=== PATIENT | male | born 1960 | race Caucasian/White ===

== ENCOUNTER → 2021-05-27 | Outpatient (CLI) | payer MEDICARE, OTHER ==
[2015-04-14 11:10] VITALS: BP 170/87
[~2021-05-27] MED LIST: AMLO-187 PO; AMOX1TAB61 PO; ASPI-482 PO; CALC0.5C8 PO; CARV25TA2 PO; CRESTOR40 MG PO; DOCU-109 PO; HYDR-2759 PO; INSU100I13 SQ; INSU100I17 SQ; LISI20TA18 PO; LOSA-73 PO; METO5TAB4 PO; Oxycodone Hcl/Acetaminophen PO; POLY17PO29 PO; SIMV20TA18 PO
== END ==
LOC: LAB 13:50
PROVIDERS: ATTEND Surgery Vascular Surgery
DX: Z01.812 Encounter for preprocedural laboratory examination (principal); Z20.822 Contact with and (suspected) exposure to COVID-19
CPT/HCPCS: U0003; U0005

== ENCOUNTER 2021-05-29 10:53 | Day surgery (SDC) | payer MEDICARE, OTHER ==
[~2021-05-29] VITALS: Ht 188 cm; Wt 109.0 kg
[~2021-05-29 10:53] MED LIST changes: +HEPARIN SODIUM 5,000 UNIT in IV NORMAL SALINE 500ML BAG 500 ML IRR ONE; -HYDR-2759 PO; +HYDROmorphone 2 MG/ML VIAL IVP PRN; +IV RINGERS,LACTATED 1000ML 1,000 ML IV SCH; +LIDOCAINE 1% Multi-Dose 20 ML VIAL. ONE; +MORPHINE SULFATE 2 MG/ML INJ. IVP PRN; +PAPAVERINE 60 MG/2 ML VIAL. ONE; +PROCHLORPERAZINE 10 MG/2 ML VIAL. IVP PRN; +SURGICEL FIBRILLAR 1X2 EACH. ONE; +fentaNYL PF VIAL 100 MCG/2 ML VIAL IVP PRN
[2021-05-29 11:34] VITALS: BP 134/62
[2021-05-29] MEDS ORDERED: INSULIN LISPRO 100 UNIT/ML 3ML VIAL for OP,RR ONLY. SQ PRN (12:00)
[2021-05-29] MEDS ORDERED: IV NORMAL SALINE 1000ML BAG 1,000 ML IV SCH (12:00)
[2021-05-29] MEDS ORDERED: ONDANSETRON PF 4 MG/2 ML VIAL. ONE (12:03)
[2021-05-29] MEDS ORDERED: LIDOCAINE 2% PF 5 ML VIAL. ONE (12:03)
[2021-05-29] MEDS ORDERED: fentaNYL PF VIAL 100 MCG/2 ML VIAL ONE ×2 (12:03→16:06)
[2021-05-29] MEDS ORDERED: DEXAMETHASONE SOD PHOS 4 MG/ML VIAL ONE (12:03)
[2021-05-29] MEDS ORDERED: PROPOFOL 10 MG/ML (20ML) VIAL. IV ONE ×2 (12:03→14:53)
[2021-05-29 12:05] LABS: BASO % 0 % (0-3); EOS # 0.4 x10^3/uL (0.0-0.7); EOS % 5 % (0-3); HEMATOCRIT 27.5 % (39.0-53.0); HEMOGLOBIN 9.6 g/dL (13.0-17.5); LYMPH # 0.5 x10^3/uL (1.0-4.8); LYMPH % 7 % (24-48); MEAN CORPUSCULAR HEMOGLOBIN 30 pg (25-35); MEAN CORPUSCULAR HGB CONC 35 g/dL (31-37); MEAN CORPUSCULAR VOLUME 86 fL (79-100); MONO # 0.8 x10^3/uL (0.0-1.1); MONO % 11 % (0-9); NEUT # 5.4 x10^3/uL (1.8-7.7); NEUT % 76 % (31-73); PLATELET COUNT 136 x10^3/uL (140-400); RED CELL DISTRIBUTION WIDTH 13.3 % (11.5-14.5); WHITE BLOOD COUNT 7.1 x10^3/uL (4.0-11.0)
[2021-05-29 12:10] LABS: CALCIUM 8.2 mg/dL (8.5-10.1); CREATININE 4.4 mg/dL (0.7-1.3); GFR 13.7; POTASSIUM 4.1 mmol/L (3.5-5.1)
[2021-05-29] MEDS ORDERED: INSULIN LISPRO 100 UNIT/ML 3ML VIAL for OP,RR ONLY. SQ ONE (12:15)
[2021-05-29] MEDS ORDERED: HYDR-2759 PO (12:56)
--- NOTE | 2021-05-29 13:00 | DISCH ---
DISCHARGE INSTRUCTIONS Condition on Discharge Condition on Discharge: Stable Activity After Discharge Activity Instructions for Disc: Activity as tolerated Other activity instructions: elevate operative arm for swelling, start hand/ball exercises when tolerate Lifting Instructions after Dis: No heavy lifting Exercise Instruction after Dis: Progress as tolerated Driving Instructions after Dis: Other, see below Diet after Discharge Diet after Discharge: Renal Dialysis, Diabetic No Calorie Level Diet Texture: Regular Wound Incision Care Wound/Incision Care: Change dressing (may remove dressing in 2 days), May get incision wet Contacting the DRJuan Diego after DC Call your doctor for: If your condition worsens Follow-Up Follow up with: Dr. Goodwin in 2-3 weeks call for appointment [phone] Treatment/Equipment after DC Adaptive Equipment Issued: None MICHELLE DOSHI APRN May 29, 2021 13:00
[2021-05-29] MEDS ORDERED: PHENYLEPHRINE in 0.9% NACL PF 1 MG/10 ML SYRINGE. IV ONE (13:46)
[2021-05-29] MEDS ORDERED: PROTAMINE 50 MG/5 ML VIAL. IV ONE (14:38)
[2021-05-29] MEDS ORDERED: SEVOFLURANE 61 TO 120 MINUTES. IH ONE (14:46)
--- NOTE | 2021-05-29 15:00 | PDOC ---
BRIEF OPERATIVE NOTE Date: May 29, 2021 Pre-Op Diagnosis ESRD on dialysis, previously on peritoneal dialysis now failing Peripheral arterial disease Post-Op Diagnosis same Procedure Performed Right brachiocephalic fistula Surgeon Cassius Goodwin Environment Coordinator Jenny Chahal APRN Anesthesia Type: General Blood Loss 20 cc Findings Circumferentially calcium brachial artery Complications none Operative Note Brachial artery circumerentially calcified with medial calcium. Cephalic vein of adequate size for fistual creation below antecubital fossa CASSIUS GOODWIN MD May 29, 2021 15:00
--- NOTE | 2021-05-29 15:35 | OP ---
DATE OF SURGERY: 05/29/2021 SURGEON: Cassius Goodwin MD MECHANIC FIELD SERVICE: Jenny Chahal APRN PROCEDURE PERFORMED: Right brachiocephalic fistula creation. PREOPERATIVE DIAGNOSES: 1. End-stage renal disease on peritoneal dialysis with peritoneal dialysis, now failing. 2. Peripheral arterial disease. POSTOPERATIVE DIAGNOSES: 1. End-stage renal disease on peritoneal dialysis with peritoneal dialysis, now failing. 2. Peripheral arterial disease. OPERATIVE FINDINGS: The brachial artery was significantly calcified circumferentially, but a large artery and patent. The cephalic vein was adequate for fistula creation without disease. ANESTHESIA: General, LMA. ESTIMATED BLOOD LOSS: 20 mL. COMPLICATIONS: None. SPECIMENS: None. DESCRIPTION OF PROCEDURE: The patient was brought to the operative theater and placed under general anesthesia with an LMA. Surgical time-out was then performed and the right arm was prepped and draped in a standard sterile fashion. 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 Additionally, there was concern for peripheral arterial disease on his preoperative examination as he did not have palpable pulses at the wrist despite having triphasic waveforms. Therefore, the decision was chosen to proceed with a brachiocephalic creation. Prior to prepping and draping, ultrasound was used to identify the cephalic vein and the brachial artery. The brachial artery bifurcation was quite low. Therefore, an incision was able to be made below the antecubital fossa for exposure of the brachial artery and cephalic vein. Preoperative antibiotics were administered and surgical time-out was performed. I then began with an incision that was transversely below the antecubital fossa and exposed the cephalic vein, exposing adequate length to allow for anastomosis. I then identified the brachial artery with the assistance of Doppler and encircled this with vessel loops, both proximally and distally. The artery was significantly calcified with medial wall calcification circumferentially. Heparin was given and the brachial artery was then clamped distally then proximally, which was somewhat difficult due to the degree of calcium. An arteriotomy was then made after dividing the cephalic vein to allow for transposition. The cephalic vein venotomy was then extended to match the length of the arteriotomy along the anterior surface of the brachial artery. End-to-side anastomosis from the cephalic vein to the brachial artery was then performed with running 6-0 Prolene. Two additional repair sutures were required for hemostasis at completion of the anastomosis. At the completion of the procedure, there was a faint thrill in the cephalic vein, palpable in the peripheral portion of the vein and there was triphasic signal in the radial artery distally. The wound was hemostatic. Protamine was given to reverse the heparin effect, 8000 units of heparin was given prior to clamping the artery. The wound was then closed with 3-0 Vicryl and 4-0 Monocryl, 3-0 Vicryl for deep dermals and 4-0 Monocryl for running subcuticular fashion. Dermabond was then applied with sterile dressing. The patient was then awakened from anesthesia and transferred to recovery room in stable condition. KEYLA DR: Uzma TID: [id number] MTDAron
[2021-05-29] MEDS: fentaNYL PF VIAL 100 MCG/2 ML VIAL IVP PRN ×2 (16:16→16:27)
[2021-05-29] MEDS ORDERED: HYDROcodone/APAP 5/325MG 1 TAB TABLET ONE (16:28)
[2021-05-29] MEDS ORDERED: HYDROcodone/APAP 5/325MG 1 TAB TABLET PO ONE (16:30)
[2021-05-29] MEDS ORDERED: oxyCODONE/APAP 5/325 1 TAB TABLET PO ONE (16:30)
[2021-05-29 16:45] VITALS: BP 136/59
== END 2021-05-29 17:23 | disposition home or self-care (01) ==
LOC: SURG 10:53
PROVIDERS: ATTEND Surgery Vascular Surgery
DX: I12.0 Hypertensive chronic kidney disease with stage 5 chronic kidney disease or end stage renal disease (principal); E11.22 Type 2 diabetes mellitus with diabetic chronic kidney disease; N18.6 End stage renal disease; Z99.2 Dependence on renal dialysis; E11.51 Type 2 diabetes mellitus with diabetic peripheral angiopathy without gangrene; E11.40 Type 2 diabetes mellitus with diabetic neuropathy, unspecified; I25.10 Atherosclerotic heart disease of native coronary artery without angina pectoris; E78.00 Pure hypercholesterolemia, unspecified; Z86.73 Personal history of transient ischemic attack (TIA), and cerebral infarction without residual deficits; Z79.899 Other long term (current) drug therapy; Z79.82 Long term (current) use of aspirin; Z95.1 Presence of aortocoronary bypass graft; Z98.890 Other specified postprocedural states
CPT/HCPCS: 36415; 36818; 80048; 82962; 85025; A4213; A4364; A4559; A4930; A6219; A6254; A6402; J0690; J1100; J1644; J1815; J2370; J2405; J2704; J2720; J3010; J3490; J7040; A4452; A6443; J2440